=== PATIENT | male | born 1980 | race Two or more races ===

== ENCOUNTER 2024-10-30 23:25 | Inpatient (IN) | payer OTHER ==
[~2024-10-30] VITALS: Ht 172.7 cm; Wt 70.4 kg
[2024-10-31 00:44] LABS: COVID AG,FIA SOURCE NASAL SWAB
[2024-10-31 00:49] VITALS: O2SAT 97
[2024-10-31 00:50] LABS: APPEARANCE,URINE CLEAR (CLEAR); GLUCOSE, URINE (UA) NEGATIVE (NEGATIVE); LEUKOCYTE ESTERASE ,URINE NEGATIVE (NEGATIVE); NITRATE,URINE NEGATIVE (NEGATIVE); OCCULT BLOOD,URINE NEGATIVE (NEGATIVE); PH,URINE DRUG SCREEN 5.0 (5.0-8.0); SPECIFIC GRAVITIY, URINE 1.009 (1.003-1.030)
[2024-10-31 01:04] LABS: SARS-COV2 (COVID) ANTIGEN,FIA Negative (Negative)
[2024-10-31 01:04] LABS: ALCOHOL, URINE DRUG SCREEN POSITIVE (NEGATIVE); AMPHET/METH SCREEN,URINE NEGATIVE (NEGATIVE); BARBITURATE SCREEN, URINE NEGATIVE (NEGATIVE); CANNABINOID SCREEN,URINE POSITIVE (NEGATIVE); COCAINE SCREEN,URINE NEGATIVE (NEGATIVE); METHADONE SCREEN, URINE NEGATIVE (NEGATIVE)
[2024-10-31 05:09] VITALS: BP 137/90; PULSE 88; RESP 18; TEMP 98.4; O2SAT 98
[2024-10-31] MEDS ORDERED: ALBUTEROL SULFATE HFA 90 MCG/PUFF 8 GM INHALER IH PRN (06:45)
[2024-10-31] MEDS ORDERED: LOPERAMIDE HCL 2 MG CAPSULE PO PRN (06:45)
[2024-10-31] MEDS ORDERED: ONDANSETRON 4 MG TABLET PO PRN (06:45)
[2024-10-31] MEDS ORDERED: PETROLATUM,WHITE 28 GM JELLY TP PRN (06:45)
[2024-10-31] MEDS ORDERED: DOCUSATE SODIUM 100 MG CAPSULE PO PRN (06:45)
[2024-10-31] MEDS ORDERED: MAG HYDROX/ALUMINUM HYD/SIMETH ES 30 ML SUSPENSION UDCUP PO PRN (06:45)
[2024-10-31] MEDS ORDERED: ACETAMINOPHEN 325 MG TABLET PO PRN (06:45)
[2024-10-31] MEDS ORDERED: MAGNESIUM HYDROXIDE SUSPENSION 30 ML UDCUP PO PRN (06:45)
[2024-10-31] MEDS ORDERED: GuaiFENesin/D-METHORPHAN [SUGAR-FREE] 200-20MG/10 ML SYRUP UDCUP PO PRN (06:45)
[2024-10-31] MEDS ORDERED: IBUPROFEN 400 MG TABLET PO PRN (06:45)
[2024-10-31] MEDS ORDERED: NICOTINE 14 MG/24 HOUR PATCH TD PRN (06:45)
[2024-10-31 08:37] VITALS: BP 132/61; PULSE 76; RESP 18; TEMP 98.4; O2SAT 99
[2024-10-31] MEDS: ZOLPIDEM TARTRATE 10 MG TABLET PO PRN (20:27)
[2024-11-01] VITALS: RESP 18
[2024-11-01 08:18] VITALS: BP 115/58; PULSE 76; RESP 17; TEMP 99.7; O2SAT 99
[2024-11-01 12:44] VITALS: TEMP 97.2
== END 2024-11-01 13:45 | disposition home or self-care (01) | DRG 885 ==
LOC: EMS 23:46 → B2S 10-31 02:49
PROVIDERS: ADMIT Psychiatry & Neurology Child & Adolescent Psychiatry; ATTEND Psychiatry & Neurology Child & Adolescent Psychiatry
PROC: GZ56ZZZ Individual Psychotherapy, Supportive (ICD-10-PCS; principal; 2024-10-31)
DX: F33.2 Major depressive disorder, recurrent severe without psychotic features (principal); R45.851 Suicidal ideations; Z20.822 Contact with and (suspected) exposure to COVID-19; F41.9 Anxiety disorder, unspecified; G47.00 Insomnia, unspecified
CPT/HCPCS: 80307; 81003; 99285